=== PATIENT | female | born 1995 | race Caucasian/White ===

== ENCOUNTER 2018-11-30 15:17 | Emergency (ER) | payer OTHER, MEDICAID ==
[~2018-11-30] VITALS: Ht 157.5 cm; Wt 54.4 kg
[2018-11-30] MEDS ORDERED: ESSENTIAL DAIL1 EACH PO (15:32)
[2018-11-30 16:48] LABS: ABSOLUTE EOSINOPHILS 0.1 thou/uL (0.0-0.7); ABSOLUTE LYMPHOCYTES 1.5 thou/uL (0.8-5.3); ABSOLUTE MONOCYTES 0.6 thou/uL (0.0-1.2); ABSOLUTE NEUTROPHILS 2.8 thou/uL (1.6-8.1); BASOPHILS 0.6 %; EOSINOPHILS 2.8 %; HEMATOCRIT 42.2 % (37.0-47.0); HEMOGLOBIN 14.2 gm/dL (12.0-15.0); LYMPHOCYTES 29.4 %; MCH 29.1 pg (26.0-34.0); MCHC 33.7 g/dL (28.0-37.0); MCV 86.4 fL (80.0-100.0); MPV 7.6 fl. (7.2-11.1); NUCLEATED RBCS 0 /100WBC; PLATELET COUNT* 279 thou/uL (150-400); POLYS 56.2 %; RBC 4.88 mil/uL (4.20-5.00); RDW-CV 13.1 % (10.5-14.5)
[2018-11-30 16:54] LABS: ANION GAP 10 mmol/L (7-16); BUN 12 mg/dL (7-18); CHLORIDE 103 mmol/L (98-107); CO2 28 mmol/L (21-32); CREATININE 0.6 mg/dL (0.6-1.3); GLUCOSE 82 mg/dL (70-99); POTASSIUM 3.6 mmol/L (3.5-5.1); SODIUM 141 mmol/L (136-145)
[2018-11-30 17:03] LABS: ALBUMIN 3.8 g/dL (3.4-5.0); ALKALINE PHOSPHATASE 75 U/L (46-116); SGOT 16 U/L (15-37); SGPT 19 U/L (30-65); TOTAL BILIRUBIN 0.5 mg/dL (<0.1-1.0); TOTAL PROTEIN 7.8 g/dL (6.4-8.2); TROPONIN-I LEVEL <0.06 ng/mL (<0.06)
[2018-11-30] MEDS ORDERED: NAPROSYN500 M1 PO (17:29)
[2018-11-30] MEDS ORDERED: VENTOLIN HFA INH8 GM INH (17:29)
[2018-11-30] MEDS ORDERED: HYDROXYZINE HCL25 M2 PO (17:29)
[2018-11-30 17:55] VITALS: BP 132/84
--- NOTE | 2018-12-03 12:23 | EKG ---
[place] [address] ELECTROCARDIOGRAM REPORT Name: KEISHA FERNANDEZ Room: [facility]#: [id number] Admission: 11/30/18 Attend Phys: Discharge: 11/30/18 Date of : [birth year] Report #: [id number] THIS REPORT FOR: //name// [facility] ED Test Date: 2018-11-30 Test Time: 16:43:59 Pat Name: KEISHA FERNANDEZ Department: Room: Gender: F [employer]: : 1995 Requested By: Jael Tracey Order Number: [id number] MD: Radu Hawkins Measurements Intervals [place] Rate: 65 P: 38 RI: 165 QRS: 26 QRSD: 90 T: 33 QT: 387 QTc: 403 Interpretive Statements Sinus rhythm Baseline wander in lead(s) V1 No previous ECG available for comparison Electronically Signed On 12-03-2018 12:23:29 CDT by Radu Hawkins [email or web address] <ELECTRONICALLY SIGNED> By: Radu Hawkins MD, [facility] 12/03/18 1223 1643 1643 Radu Hawkins MD, FACC /EPI
== END 2018-11-30 17:57 | disposition home or self-care (01) ==
LOC: M.ERS 15:17
PROVIDERS: Nurse Practitioner Family
DX: F41.9 Anxiety disorder, unspecified (principal); R06.00 Dyspnea, unspecified; Z88.2 Allergy status to sulfonamides

== ENCOUNTER 2019-03-12 18:24 | Emergency (ER) | payer OTHER, MEDICAID ==
[~2019-03-12] VITALS: Ht 160 cm; Wt 54.4 kg
[~2019-03-12 18:24] MED LIST: ESSENTIAL DAIL1 EACH PO; HYDROXYZINE HCL25 M2 PO; NAPROSYN500 M1 PO; VENTOLIN HFA INH8 GM INH
[2019-03-12 18:44] LABS: URINE BILIRUBIN NEGATIVE (Negative); URINE BLOOD NEGATIVE (Negative); URINE CLARITY CLEAR; URINE COLOR YELLOW; URINE GLUCOSE-RANDOM NEGATIVE (Negative); URINE KETONES 1+ (Negative); URINE LEUKOCYTES-REFLEX NEGATIVE (Negative); URINE NITRITE-REFLEX NEGATIVE (Negative); URINE PROTEIN NEGATIVE (Negative); URINE SPECIFIC GRAVITY 1.025 (1.005-1.030); URINE UROBILINOGEN 0.2 E.U./dl (0.2-1.0)
[2019-03-12] MEDS ORDERED: PYRIDIUM100 M1 PO (19:24)
[2019-03-12] MEDS ORDERED: KEFLEX500 M1 PO (19:24)
[2019-03-12 19:46] VITALS: BP 122/62
== END 2019-03-12 19:46 | disposition home or self-care (01) ==
LOC: M.ERS 18:24
PROVIDERS: Family Medicine
DX: N89.8 Other specified noninflammatory disorders of vagina (principal); R30.0 Dysuria; N30.10 Interstitial cystitis (chronic) without hematuria; Z88.2 Allergy status to sulfonamides

== ENCOUNTER 2019-11-30 07:40 | Emergency (ER) | payer OTHER, MEDICAID ==
[~2019-11-30] VITALS: Ht 157.5 cm; Wt 55.8 kg
[~2019-11-30 07:40] MED LIST changes: +KEFLEX500 M1 PO; +PYRIDIUM100 M1 PO
[2019-11-30 08:02] LABS: URINE BILIRUBIN NEGATIVE (Negative); URINE BLOOD NEGATIVE (Negative); URINE CLARITY CLEAR; URINE COLOR YELLOW; URINE GLUCOSE-RANDOM NEGATIVE (Negative); URINE KETONES NEGATIVE (Negative); URINE LEUKOCYTES-REFLEX NEGATIVE (Negative); URINE NITRITE-REFLEX NEGATIVE (Negative); URINE PROTEIN NEGATIVE (Negative); URINE SPECIFIC GRAVITY 1.025 (1.005-1.030); URINE UROBILINOGEN 0.2 E.U./dl (0.2-1.0)
[2019-11-30] MEDS ORDERED: CIPROFLOXACIN500 M1 PO (08:11)
[2019-11-30] MEDS ORDERED: PYRIDIUM200 MG PO (08:19)
[2019-11-30] MEDS ORDERED: KEFLEX500 M2 PO (08:19)
[2019-11-30 08:24] VITALS: BP 114/70
== END 2019-11-30 08:25 | disposition home or self-care (01) ==
LOC: M.ERS 07:40
PROVIDERS: Personal Emergency Response Attendant
DX: N30.10 Interstitial cystitis (chronic) without hematuria (principal); Z87.440 Personal history of urinary (tract) infections; Z88.2 Allergy status to sulfonamides

== ENCOUNTER 2019-12-18 19:37 | Emergency (ER) | payer OTHER, MEDICAID ==
[~2019-12-18] VITALS: Ht 157.5 cm; Wt 55.3 kg
[~2019-12-18 19:37] MED LIST changes: +CIPROFLOXACIN500 M1 PO; +KEFLEX500 M2 PO; +PYRIDIUM200 MG PO
[2019-12-18 19:50] LABS: URINE BILIRUBIN NEGATIVE (Negative); URINE BLOOD NEGATIVE (Negative); URINE CLARITY CLEAR; URINE COLOR YELLOW; URINE GLUCOSE-RANDOM NEGATIVE (Negative); URINE KETONES NEGATIVE (Negative); URINE LEUKOCYTES-REFLEX NEGATIVE (Negative); URINE NITRITE-REFLEX NEGATIVE (Negative); URINE PROTEIN NEGATIVE (Negative); URINE UROBILINOGEN 0.2 E.U./dl (0.2-1.0)
[2019-12-18 20:09] LABS: ABSOLUTE EOSINOPHILS 0.3 thou/uL (0.0-0.7); ABSOLUTE LYMPHOCYTES 2.3 thou/uL (0.8-5.3); ABSOLUTE MONOCYTES 0.9 thou/uL (0.0-1.2); ABSOLUTE NEUTROPHILS 4.5 thou/uL (1.6-8.1); BASOPHILS 0.4 %; EOSINOPHILS 3.3 %; HEMATOCRIT 40.9 % (37.0-47.0); HEMOGLOBIN 14.2 gm/dL (12.0-15.0); LYMPHOCYTES 28.9 %; MCH 30.9 pg (26.0-34.0); MCHC 34.8 g/dL (28.0-37.0); MCV 88.8 fL (80.0-100.0); MONOCYTES 10.9 %; MPV 7.6 fl. (7.2-11.1); NUCLEATED RBCS 0 /100WBC; PLATELET COUNT* 285 thou/uL (150-400); POLYS 56.5 %; RDW-CV 12.3 % (10.5-14.5); WBC 7.9 thou/uL (4.0-11.0)
[2019-12-18 20:17] LABS: CALCIUM 8.7 mg/dL (8.5-10.1); CREATININE 0.9 mg/dL (0.6-1.3); POTASSIUM 3.8 mmol/L (3.5-5.1)
[2019-12-18 20:22] LABS: TOTAL BILIRUBIN 0.3 mg/dL (<0.1-1.0); TOTAL PROTEIN 7.7 g/dL (6.4-8.2)
[2019-12-18] MEDS ORDERED: NORCO 5-325 TA1 EAC2 PO (20:55)
[2019-12-18 21:06] VITALS: BP 121/84
== END 2019-12-18 21:07 | disposition home or self-care (01) ==
LOC: M.ERS 19:37
PROVIDERS: Emergency Medicine; Physician Assistant
DX: M54.5 Low back pain (principal); Z87.440 Personal history of urinary (tract) infections; Z88.2 Allergy status to sulfonamides

== ENCOUNTER 2019-12-26 03:19 | Emergency (ER) | payer OTHER, MEDICAID ==
[~2019-12-26] VITALS: Ht 157.5 cm; Wt 54.4 kg
[~2019-12-26 03:19] MED LIST changes: +NORCO 5-325 TA1 EAC2 PO
[2019-12-26 03:32] LABS: URINE BILIRUBIN NEGATIVE (Negative); URINE BLOOD NEGATIVE (Negative); URINE CLARITY CLEAR; URINE COLOR YELLOW; URINE GLUCOSE-RANDOM NEGATIVE (Negative); URINE KETONES NEGATIVE (Negative); URINE LEUKOCYTES-REFLEX NEGATIVE (Negative); URINE NITRITE-REFLEX NEGATIVE (Negative); URINE PROTEIN NEGATIVE (Negative); URINE SPECIFIC GRAVITY 1.025 (1.005-1.030); URINE UROBILINOGEN 0.2 E.U./dl (0.2-1.0)
[2019-12-26] MEDS ORDERED: ULTRAM 50MG TAB50 MG PO (05:32)
[2019-12-26] MEDS ORDERED: MELOXICAM15 MG PO (05:32)
[2019-12-26 05:51] VITALS: BP 115/69
== END 2019-12-26 05:53 | disposition home or self-care (01) ==
LOC: M.ERS 03:19
PROVIDERS: Personal Emergency Response Attendant
DX: R10.84 Generalized abdominal pain (principal); Z87.440 Personal history of urinary (tract) infections; Z88.2 Allergy status to sulfonamides